=== PATIENT | male | born 1980 | race Caucasian/White ===

== ENCOUNTER 2024-09-21 16:19 | Observation (INO) | payer OTHER, SELFPAY ==
--- NOTE | ~2024-09-21 | CT_ITS ---
CLINICAL HISTORY: epigastric pain, hx gastric resection, ulcers CT abdomen and pelvis with contrast Comparison: None Findings: No consolidation or effusion. Distended gallbladder with innumerable folds, wall thickening and pericholecystic stranding, concerning for acute calculus cholecystitis. Bilateral nonobstructive renal calculi largest in the left midpole kidney measuring 1 cm. Left-sided hypodense renal cysts. No bowel obstruction. Evidence of prior gastric bypass. Normal appendix. No acute fracture. IMPRESSION: 1. Findings suggestive of acute calculus cholecystitis. 2. Bilateral nonobstructive renal calculi largest in the left midpole kidney measuring 1 cm. This document has been electronically signed by: Roddy Noguera MD on 09/21/2024 20:02:20
--- NOTE | ~2024-09-21 | US_ITS ---
CLINICAL HISTORY: pain; EVALUATE GB, CBD --- Additional Notes or Special Instructions: provider ok to do in AM US abdomen limited with color Doppler Comparison: CT/SR - CT ABDOMEN PELVIS W IV CON - 09/21/24 19:01 EDT Findings: Small layering gallstones suspected. Diffuse gallbladder wall thickening. Echogenic bile. Fluid in the gallbladder wall and pericholecystic fluid. Common bile duct upper limits of normal at 6 mm. Mild intrahepatic ductal dilatation. Positive sonographic Napoles's sign. Impression: 1. Cholelithiasis with evidence of cholecystitis. 2. Intrahepatic ductal dilatation. 3. Common bile duct upper limits of normal with no sonographic evidence of choledocholithiasis. This document has been electronically signed by: Alexander Hernandez MD on 09/22/2024 11:03:12
--- NOTE | ~2024-09-21 | MR_ITS ---
CLINICAL HISTORY: elevated lfts and duct dilatation --- Additional Notes or Special Instructions: sta t - rule out cbd stone Unable to run 3D Triggered seq due to pt breathing. Multiple repeats jonnathan mead MRCP without gadolinium Comparison: US - US ABDOMEN LIMITED - 09/22/24 08:[address]/SR - CT ABDOMEN PELVIS W IV CON - 09/21/24 19:01 EDT Findings: There are multiple gallstones within the gallbladder. There is severe edema of the gallbladder wall and the adjacent mesentery. There are at least 3 stones within the common bile duct. These measure up to 5 mm in size. There is mild associated common bile duct dilatation. There is no significant dilatation of the intrahepatic biliary tree. There is a small left kidney cyst. Abdominal organs are otherwise unremarkable. There is a small amount of free fluid within the right upper quadrant. Unremarkable visualized bowel. No significant abnormality of visualized bony structures. IMPRESSION: 1. Severe acute cholecystitis. 2. Choledocholithiasis. This document has been electronically signed by: Sara Heller MD on 09/22/2024 14:08:10
[2024-09-21 16:23] VITALS: BP 102/63; PULSE 87; RESP 26; TEMP 36.6; O2SAT 99; BMI 23.0
--- NOTE | 2024-09-21 16:24 | ED.GENADULT ---
HPI - General Adult General Chief complaint: Abdominal Pain Stated complaint: passed out Time Seen by Provider: 09/21/24 18:25 Source: patient Mode of arrival: wheelchair Limitations: no limitations History of Present Illness ED Provider: Dr. Lanette Lane HPI narrative: Patient comes to the emergency room complaining of severe abdominal pain. Patient states it started today. According to the patient's father, due to pain patient passed out for a few sec. Patient denies chest pain or shortness of breath, only complaining of severe abdominal pain and nausea. Patient denies diarrhea, denies fever chills, denies hematuria or dysuria. Related Data Allergies Allergy/AdvReac Type Severity Reaction Status Date / Time Penicillins [PENICILLINS] Allergy Unknown UNKNOWN Verified 09/21/24 16:25 Review of Systems Review of Systems: Constitutional : No Weight loss, No Fever, No Chills, No Night Sweats, No Fatigue, No Malaise ENT/Mouth : No Hearing loss, No Ear Pain, No Nasal Congestion, No Sinus Pain, No Hoarseness, No sore throat, No Rhinorrhea, No Swallowing Difficulty Eyes: No Eye Pain, No Swelling, No Redness, No Foreign Body, No Discharge, No Vision Changes Cardiovascular : No Chest Pain, No SOB, No Dyspnea on Exertion, No Orthopnea, No Edema, No Palpitations Respiratory : No Cough, No Sputum, No Wheezing, No Smoke Exposure, No Dyspnea Gastrointestinal : Complaining of nausea, very sharp epigastric pain, denies diarrhea Genitourinary : no irregular bleeding, No Dysuria, No Urinary Frequency, No Hematuria, No Urinary Incontinence, No Urgency, No Flank Pain, No Urinary Flow Changes, No Hesitancy Musculoskeletal : No joint pain, No Myalgias, No Joint Swelling Skin : No Skin Lesions, No rash Neuro : No Weakness, No Numbness, No Paresthesias, No Loss of Consciousness, No Dizziness, No Headache Psych : No Anxiety/Panic, No Depression, No SI/HI/AH/VH, No Social Issues, Heme/Lymph: No Bruising, No Bleeding,No Lymphadenopathy Endocrine : No Polyuria, No Polydipsia, No Temperature Intolerance PMF Past Medical History Medical History (Updated 09/21/24 @ 21:[address] MD) Peptic ulcer disease Surgical History (Updated 09/21/24 @ 20:[address] MD) History of partial gastrectomy Social History Social History Advance Directives: No Advance Directives Information Provided: Yes Do you have a plan to hurt others: No Plan Physical Exam ED Vital Signs: Vital Signs - 24 hr 09/21/24 16:23 09/21/24 18:43 09/21/24 19:27 Temperature 98 F 98 F 97.6 F Pulse Rate 87 80 75 Respiratory Rate 26 H 22 H 20 Blood Pressure 102/63 132/76 123/72 Pulse Oximetry 99 99 99 Oxygen Delivery Method Room Air Room Air Room Air 09/21/24 20:50 Temperature Pulse Rate 57 Respiratory Rate 16 Blood Pressure 115/62 Pulse Oximetry 96 Oxygen Delivery Method Room Air BMI result Body Mass Index 23.0 Const Other: Appearance: Alert. Oriented X3. Looks uncomfortable Eyes: Pupils equal, round and reactive to light. ENT: Pharynx normal. Neck: Normal inspection. Neck supple. No lymph nodes noted. No crepitus CVS: Normal heart rate and rhythm. Pulses normal. Normal S1 and S2 Respiratory: No respiratory distress. Breath sounds normal. No Wheezing. No rales Abdomen: Distended, pain to palpation in epigastric and right upper quadrant, positive Napoles sign Skin: Skin warm and mildly diaphoretic. Normal skin color. Normal skin turgor. Extremities: No lower extremity edema. No Lacerations. No Rash Neuro: Oriented X 3. No motor deficit. No sensory deficit. Moving all extremities. No slurred speech. CN 2 through 12 grossly intact Psych: calm, cooperative, normal affect Course Course Course Narrative: This is an RME performed by Michael Leach CNP: Additional HPI, ROS, PE not included below will be deferred to primary provider. Patient is a 44-year-old male who presents to the emergency department for evaluation. His father presented to triage requesting assistance to get him out of the vehicle. Evidently he may have passed out in the back of the vehicle. He was found side-lying across the backseat of the vehicle, initially not responsive to his name few sec began spotting. Was able to extricate himself from the vehicle. Endorsing severe diffuse abdominal pain, nausea, self-induced vomiting, subjective dehydration. Reports a history of prior abdominal surgery with large portion of my stomach and small intestine removed due to ulcers? a few years prior. He he is very anxious, it is difficult to get clear history from him, he appears significantly uncomfortable. Plan: Serum labs, EKG, urinalysis Medications Administered Discontinued Medications Generic Name Dose Route Start Last Admin Trade Name Adama PRN Reason Stop Dose Admin Hydromorphone HCl 1 mg 09/21/24 20:26 09/21/24 20:32 Hydromorphone Hcl 1 Mg/Ml Syringe IVPUSH 09/21/24 20:27 1 mg ONCE ONE Administration Protocol Sodium Chloride 1,000 mls @ 999 mls/hr 09/21/24 18:28 09/21/24 20:08 Ns IVCONT 09/21/24 19:28 Infused .Q1H1M ONE Infusion Iohexol 100 ml 09/21/24 19:33 09/21/24 19:33 Iohexol 350 Mg/Ml 100 Ml Infus..Btl IV 09/21/24 19:34 85 ml ONCE ONE Administration Morphine Sulfate 2 mg 09/21/24 18:28 09/21/24 18:39 Morphine Sulfate 2 Mg/Ml Cartridge IVPUSH 09/21/24 18:29 2 mg ONCE ONE Administration Protocol Ondansetron HCl 4 mg 09/21/24 18:28 09/21/24 18:39 Ondansetron Hcl 4 Mg/2 Ml Vial IVPUSH 09/21/24 18:29 4 mg ONCE ONE Administration Medical Decision Making Medical Decision Making [facility] Narrative: Patient was given morphine, Zofran and IV fluids CT scan shows a calculus cholecystitis. Patient states that he is still in significant amount of pain, patient given Dilaudid. Patient was also given IV Zosyn I discussed the patient with Dr. Duke from General surgery, patient being admitted I discussed the above-mentioned with the patient, agrees with plan. Differential Diagnosis Differential Diagnoses: The differential diagnosis associated with the presentation includes (Peptic perforation, small-bowel obstruction, pancreatitis, cholecystitis) Admission/Observation Consideration of admission/observation: Escalation of care including admission/observation considered Consult Healthcare Provider Management of the patient was discussed with: Public Housing Manager Lab Data [facility] Lab Attestation statement: I reviewed the patient's lab results. 09/21/24 17:13 09/21/24 17:13 Labs: Lab Results 09/21/24 Range/Units 17:13 WBC 10.3 (4.8-10.8) X10*3/uL RBC 4.70 (4.60-5.80) X10*6/uL Hgb 13.3 L (14.0-18.0) g/dl Hct 37.6 L (42.0-52.0) % MCV 80.0 (80.0-98.0) fL MCH 28.3 (27.0-33.0) pg MCHC 35.4 (31.0-36.0) g/dl RDW 12.5 (11.0-16.0) % Plt Count 188 (160-400) X10*3/uL MPV 9.9 (9.4-12.4) fL Immature Gran % (Auto) 0.4 (0.0-0.4) % Neut % (Auto) 85.2 H (45-73) % Lymph % (Auto) 6.8 L (20-40) % [place] % (Auto) 7.3 (2-11) % Eos % (Auto) 0.0 (0-4) % Baso % (Auto) 0.3 (0-2) % Lymph # (Auto) 0.7 L (1.2-4.9) X10*3/uL [place] # (Auto) 0.8 (0.1-1.2) X10*3/uL Eos # (Auto) 0.0 (0.0-0.4) X10*3/uL Baso # (Auto) 0.0 (0.0-0.2) X10*3/uL Abs Immat Gran (auto) 0.04 H (0.00-0.03) X10*3/uL Absolute Neuts (auto) 8.8 H (2.0-8.3) x10*3/uL Absolute Nucleated RBC 0.000 (0.0-0.012) X10*3/uL Nucleated RBC % (auto) 0.0 (0.0-0.2) /100WBC Sodium 138 (135-145) mmol/L Potassium 4.4 (3.3-5.1) mmol/L Chloride 101 (96-108) mmol/L Carbon Dioxide 27 (22-29) mmol/L Anion Gap 14 (12-20) BUN 11 (9-16) mg/dL Creatinine 0.86 (0.5-1.4) mg/dL Estim Creat Clear Calc 113.6 Estimated GFR > 60 Random Glucose 140 H (60-115) mg/dL Calcium 9.8 (8.4-10.2) mg/dL Magnesium 1.9 (1.6-2.6) mg/dL Total Bilirubin 0.8 (0.0-1.0) mg/dL AST 46 H (5-37) U/L ALT 97 H (0-40) U/L Alkaline Phosphatase 100 (39-117) U/L Troponin I High Sens < 2.7 (<3.5-35.0) ng/L C-Reactive Protein 4.28 H (< or = 0.50) mg/dL Total Protein 7.7 (6.5-8.0) g/dL Albumin 4.3 (3.5-5.0) g/dL Lipase 18 (8-78) U/L Influenza Type A (PCR) NEGATIVE (Negative) Influenza Type B (PCR) NEGATIVE (Negative) RSV RNA Qual (PCR) NEGATIVE (Negative) SARS-CoV-2 RNA (RT-PCR) NEGATIVE (Negative) Independent Interpretation I performed an independent interpretation of an: EKG (My interpretation of EKG: Sinus bradycardia, heart rate 59, no ST segment depression or elevation, no T-wave inversion, QTC 392) Critical Care Time Critical Care Time Critical Care Time: Yes Total Critical Care Time: 60 Attestation: I have personally provided critical care time. Time includes review of lab data, radiology results, discussion with consultants, and monitoring for potential decompensation. Intervention performed as documented. Discharge Plan Discharge Clinical Impression: Acute acalculous cholecystitis Patient Disposition: Admitted As Inpatient Print Language: Estonian
--- NOTE | 2024-09-21 16:27 | ECG_ITS ---
Test Reason : SYNCOPE Blood Pressure : */* mmHG Vent. Rate : 59 BPM Atrial Rate : 59 BPM P-R Int : 176 ms QRS Dur : 84 ms QT Int : 396 ms P-R-T Axes : 52 81 69 degrees QTcB Int : 392 ms Sinus bradycardia Otherwise normal ECG No previous ECGs available Referred By: Rea Leach Electronically Signed By: Gary Cooney
[2024-09-21 17:19] LABS: MANUAL DIFF FLAG NO
[2024-09-21 17:22] LABS: Basophils Percent Auto 0.3 % (0-2); Hematocrit 37.6 % (42.0-52.0); Hemoglobin 13.3 g/dl (14.0-18.0); Imm Gran Abs Auto 0.04 X10*3/uL (0.00-0.03); Imm Gran Pct Auto 0.4 % (0.0-0.4); Lymphocytes Absolute Auto 0.7 X10*3/uL (1.2-4.9); Lymphocytes Percent Auto 6.8 % (20-40); Mean Corpuscular HGB Conc 35.4 g/dl (31.0-36.0); Mean Corpuscular Hemoglobin 28.3 pg (27.0-33.0); Mean Platelet Volume 9.9 fL (9.4-12.4); Monocytes Absolute Auto 0.8 X10*3/uL (0.1-1.2); Monocytes Percent Auto 7.3 % (2-11); Neutrophils Absolute Auto 8.8 x10*3/uL (2.0-8.3); Neutrophils Percent Auto 85.2 % (45-73); Platelet Count 188 X10*3/uL (160-400); Red Cell Distribution Width 12.5 % (11.0-16.0); White Blood Count 10.3 X10*3/uL (4.8-10.8)
[2024-09-21 17:40] LABS: Albumin Level 4.3 g/dL (3.5-5.0); Alkaline Phosphatase 100 U/L (39-117); Anion Gap 14 (12-20); Aspartate Amino Transferase 46 U/L (5-37); Bilirubin Total 0.8 mg/dL (0.0-1.0); Blood Urea Nitrogen 11 mg/dL (9-16); C Reactive Protein 4.28 mg/dL (< or = 0.50); Calcium 9.8 mg/dL (8.4-10.2); Carbon Dioxide 27 mmol/L (22-29); Chloride 101 mmol/L (96-108); Creatinine Clr Calc Pharmacy 113.6; Estimated Glomerular Filt Rate > 60; Glucose Random 140 mg/dL (60-115); Lipase 18 U/L (8-78); Magnesium 1.9 mg/dL (1.6-2.6); Potassium 4.4 mmol/L (3.3-5.1); Sodium 138 mmol/L (135-145); Total Protein 7.7 g/dL (6.5-8.0)
[2024-09-21 17:47] LABS: Troponin-I High Sensitivity < 2.7 ng/L (<3.5-35.0)
[2024-09-21 17:53] LABS: Alanine Aminotransferase 97 U/L (0-40)
[2024-09-21 18:17] LABS: Influenza A PCR NEGATIVE (Negative); Influenza B PCR NEGATIVE (Negative); Resp Syncy Virus RNA Qual PCR NEGATIVE (Negative); SARS COV2 PCR INHOUSE NEGATIVE (Negative)
[2024-09-21] MEDS: ondansetron HCL 4 MG/2 ML VIAL IVPUSH (18:39)
[2024-09-21] MEDS: Morphine Sulfate 2 MG/ML CARTRIDGE IVPUSH ×2 (18:39→22:42)
[2024-09-21] MEDS: 0.9 % Sodium Chloride 1,000 ML 999 ML IVCONT (18:40)
[2024-09-21 18:43] VITALS: BP 132/76; PULSE 80; RESP 22; TEMP 36.6; O2SAT 99
--- NOTE | 2024-09-21 18:44 | PC.NURSE ---
Pt pale/diaphoretic; in obvious discomfort; medicated per orders
[2024-09-21 19:27] VITALS: BP 123/72; PULSE 75; RESP 20; TEMP 36.4; O2SAT 99
[2024-09-21] MEDS: iohexoL 350 MG/ML 100 ML INFUS..BTL IV (19:33)
[2024-09-21] MEDS: HYDROmorphone HCl 1 MG/ML SYRINGE IVPUSH (20:32)
[2024-09-21 20:50] VITALS: BP 115/62; PULSE 57; RESP 16; O2SAT 96
--- NOTE | 2024-09-21 21:36 | PHA.MEDREC ---
Addendum entered by Jericho Fontenot RPh 09/21/24 21:40: Reviewed by [facility]. Original Note: Pharmacy Consult ? Medication Reconciliation Pharmacy has completed the medication reconciliation. Spoke with patient and he confirmed he is only taking the Suboxone 8-2mg films and confirmed he dissolves 1 film under the tongue twice a day and states he took one this morning.
[2024-09-21 21:41] LABS: Lactic Acid 1.6 mmol/L (0.5-2.0)
[2024-09-21 21:59] VITALS: BP 116/68; PULSE 73; RESP 16; TEMP 37.8; O2SAT 98
[2024-09-21] MEDS: levoFLOXacin/D5W 500 MG/100 ML PIGGYBACK 100 MG IV (22:10)
[2024-09-21 22:26] LABS: Appearance Urine Clear; Color Urine Yellow; Glucose Urine UA Negative (Negative); Leukocyte Esterase Urine Negative (Negative); Nitrite Urine Negative (Negative); Specific Gravity - Urine >= 1.030 (1.005-1.025); UMIC TRIGGER UACC YES; Urine Blood Large (3+) (Negative); Urine Ketones 40 mg/dL (Negative); Urine Protein Trace mg/dL (Neg-Trace)
[2024-09-21 22:31] LABS: Bacteria Urine None Seen (None Seen); Hyaline Casts Urine 0-2 /LPF (0-2); RBC Urine >20 /HPF (0-2); Squamous Epithelial Cell Urine 0-2 /HPF (0-2); WBC Urine 0-5 /HPF (0-5)
[2024-09-21] MEDS: metroNIDAZOLE/NS 500 MG/100 ML PIGGYBACK 100 MG IV (23:12)
[2024-09-21] MEDS: Lactated Ringers 1,000 ML 100 ML IVCONT (23:15)
[2024-09-22] VITALS (7 sets, daily range): BP systolic 97–118; BP diastolic 55–66; PULSE 68–118; RESP 1–20; TEMP 36.8–39.2; O2SAT 95–99
[2024-09-22] MEDS: Melatonin 3 MG TABLET 6 MG PO (02:28)
[2024-09-22] MEDS: Acetaminophen 325 MG TABLET 650 MG PO ×2 (03:14→16:00)
[2024-09-22] MEDS: Morphine Sulfate 2 MG/ML CARTRIDGE IVPUSH ×2 (04:46→17:09)
[2024-09-22 06:04] LABS: MANUAL DIFF FLAG NO
[2024-09-22 06:15] LABS: Basophils Percent Auto 0.2 % (0-2); Hematocrit 32.2 % (42.0-52.0); Hemoglobin 11.3 g/dl (14.0-18.0); Imm Gran Abs Auto 0.07 X10*3/uL (0.00-0.03); Imm Gran Pct Auto 0.6 % (0.0-0.4); Lymphocytes Absolute Auto 0.4 X10*3/uL (1.2-4.9); Lymphocytes Percent Auto 3.9 % (20-40); Mean Corpuscular HGB Conc 35.1 g/dl (31.0-36.0); Mean Corpuscular Hemoglobin 28.1 pg (27.0-33.0); Mean Corpuscular Volume 80.1 fL (80.0-98.0); Mean Platelet Volume 10.4 fL (9.4-12.4); Monocytes Absolute Auto 0.9 X10*3/uL (0.1-1.2); Monocytes Percent Auto 8.4 % (2-11); Neutrophils Absolute Auto 9.4 x10*3/uL (2.0-8.3); Neutrophils Percent Auto 86.9 % (45-73); Platelet Count 146 X10*3/uL (160-400); Red Blood Count 4.02 X10*6/uL (4.60-5.80); Red Cell Distribution Width 12.8 % (11.0-16.0); White Blood Count 10.8 X10*3/uL (4.8-10.8)
[2024-09-22] MEDS: Pantoprazole Sodium 40 MG/10 ML VIAL IVPUSH (06:27)
[2024-09-22 06:47] LABS: Alanine Aminotransferase 61 U/L (0-40); Albumin Level 3.3 g/dL (3.5-5.0); Alkaline Phosphatase 85 U/L (39-117); Anion Gap 13 (12-20); Aspartate Amino Transferase 35 U/L (5-37); Bilirubin Total 1.4 mg/dL (0.0-1.0); Blood Urea Nitrogen 11 mg/dL (9-16); Calcium 8.4 mg/dL (8.4-10.2); Carbon Dioxide 25 mmol/L (22-29); Chloride 103 mmol/L (96-108); Creatinine Clr Calc Pharmacy 109.8; Estimated Glomerular Filt Rate > 60; Glucose Random 119 mg/dL (60-115); Sodium 137 mmol/L (135-145); Total Protein 5.9 g/dL (6.5-8.0)
[2024-09-22] MEDS: Lactated Ringers 1,000 ML 100 ML IVCONT (08:36)
--- NOTE | 2024-09-22 09:15 | MHC.CM.PN ---
PHILLIP 09/22/24 DX Abdominal Pain Pt lives w Father+son He is independent with all functional mobility. He is prescribed Suboxone. He does not know the name of his PCP. [facility] brochure provided. DP home self care. He will arrange for transportation home.
[2024-09-22] MEDS: cefTRIAXone sodium 1 GM VIAL IVPUSH (14:34)
[2024-09-22] MEDS: metroNIDAZOLE/NS 500 MG/100 ML PIGGYBACK 100 MG IV (14:44)
--- NOTE | 2024-09-22 15:56 | PM.HPGS ---
History of Present Illness History of Present Illness Date of Service: 09/22/24 Chief complaint: abdominal pain Narrative: The pt is a 44 year old male who has a history of gastric ulcers in anna past and in 2013 at [facility] [place] underwent partial gastrectomy with billroth II reconstruction. Pt has been well since then - not for obesity. now comes in with abdominal pain on and off for the last 3-4 days worsening yesterday and came into the ER and wbc normal, vitals ok but with severe epigastric pain. CT scan abdo and pelvis showing cholecystitis and ruq ultrasound showing dilated CBD and intrahepatic duct. MRCP then done shows at least 3, 0.5mm stones in her CBD and stones in his GB. tbili elevated a bit. Pt feeling better with npo and ivf and iv Levaquin to Ceftriaxone and Flagyl. Blood cultures showing GM negative rods growing. Pt feeling little worse now. GI here semiconductor lab technician unable to carry out ERCP in B-II anatomy and recommending transfering out. [facility] has no GI to do ERCP. Discussed case with [facility] and is in agreement to accept transfer to surgery with GI consultation for ERCP and then lap melvin by surgical team. Pt is in agreement. Review of Systems Review of Systems: Yes all other systems are reviewed and are negative [facility] Past Medical History Medical History (Updated 09/22/24 @ 17:09 by Gracie Duke MD) Peptic ulcer disease Surgical History Surgical History (Updated 09/21/24 @ 20:[address] MD) History of partial gastrectomy Social History Social History Patient Tobacco Use Status: Never used Tobacco service: No Meds Allergies Allergy/AdvReac Type Severity Reaction Status Date / Time Penicillins [PENICILLINS] Allergy Unknown UNKNOWN Verified 09/21/24 16:25 Active Medications: Current Medications Acetaminophen (Acetaminophen 325 Mg Tablet) 650 mg PO Q6H PRN PRN Reason: Pain, Mild 1-3,fever,headache Last Admin: 09/22/24 03:14 Dose: 650 mg Calcium Carbonate (Calcium Carbonate 750 Mg Tab.Chew) 750 mg PO Q4H PRN PRN Reason: Heartburn Ceftriaxone Sodium (Ceftriaxone Sodium 1 Gm Vial) 1 gm IVPUSH Q24H SURINDER Last Admin: 09/22/24 14:34 Dose: 1 gm Lactated Ringer's (Lr) 1,000 mls @ 100 mls/hr IVCONT .Q10H [facility] Last Admin: 09/22/24 08:36 Dose: 100 mls/hr Metronidazole (Flagyl) 500 mg in 100 mls @ 100 mls/hr IV Q6H [facility] Last Infusion: 09/22/24 15:44 Dose: Infused Magnesium Hydroxide (Milk Of Magnesia 30 Ml Oral.Susp) 30 ml PO DAILY PRN PRN Reason: Constipation Melatonin (Melatonin 3 Mg Tablet) 6 mg PO BEDTIME PRN PRN Reason: Insomnia Last Admin: 09/22/24 02:28 Dose: 6 mg Morphine Sulfate (Morphine Sulfate 2 Mg/Ml Cartridge) 2 mg IVPUSH RQ4H PRN; Protocol PRN Reason: Pain, Severe (Pain Scale 7-10) Last Admin: 09/22/24 04:46 Dose: 2 mg Ondansetron HCl (Ondansetron Hcl 4 Mg/2 Ml Vial) 4 mg IVPUSH Q8H PRN PRN Reason: Nausea and Vomiting Pantoprazole Sodium (Pantoprazole Sodium 40 Mg/10 Ml Vial) 40 mg IVPUSH DAILY@0630 [facility] Last Admin: 09/22/24 06:27 Dose: 40 mg Sodium Chloride (0.9 % Sodium Chloride Flush 3 Ml Syringe) 3 ml IVFLUSH QSHIFT [facility] Last Admin: 09/22/24 15:09 Dose: Not Given Home Medications ?Medication ?Instructions ?Recorded ?Confirmed ?Last Taken ?Type buprenorphine 8 mg-naloxone 2 mg 1 film sublingual BID 09/21/24 09/21/24 09/21/24 History sublingual film (Suboxone) Physical Exam Vital Signs: Vital Signs: Last Vital Signs Temp 98.6 F 09/22/24 15:42 Pulse 68 09/22/24 15:42 Resp 1 L 09/22/24 15:42 BP 112/65 09/22/24 15:42 Pulse Ox 99 09/22/24 15:42 O2 Del Method Room Air 09/22/24 15:42 BMI result Body Mass Index 23.0 Const: General: cooperative, healthy appearing and comfortable HEENT: Other: nonicteric Resp: Effort & Inspection: normal respiratory effort Auscultation: clear to auscultation bilaterally Cardio: Rate: regular rate Rhythm: regular rhythm GI: Other: thin abdo, soft nondistended tender ruq no peritonitis mild guarding Psych: Appearance: grossly normal Mental Status: mental status grossly normal Speech and movement: Normal speech and movement present Affect: normal affect Attitude: cooperative Thought process: Normal thought process present Thought content: Normal thought content present Results Results Labs: Short CBC 09/21/24 09/22/24 Range/Units 17:13 05:45 WBC 10.3 10.8 (4.8-10.8) X10*3/uL Hgb 13.3 L 11.3 L (14.0-18.0) g/dl Hct 37.6 L 32.2 L (42.0-52.0) % Plt Count 188 146 L (160-400) X10*3/uL BMP 09/21/24 09/22/24 17:13 05:45 Sodium 138 137 Potassium 4.4 4.0 Chloride 101 103 Carbon Dioxide 27 25 BUN 11 11 Creatinine 0.86 0.89 Calcium 9.8 8.4 D Liver Function 09/21/24 09/22/24 Range/Units 17:13 05:45 Total Bilirubin 0.8 1.4 H (0.0-1.0) mg/dL AST 46 H 35 (5-37) U/L ALT 97 H 61 H (0-40) U/L Alkaline Phosphatase 100 85 (39-117) U/L Albumin 4.3 3.3 L (3.5-5.0) g/dL Urine 09/21/24 Range/Units 22:18 Urine Color Yellow Urine Appearance Clear Urine pH 8.0 (5.0-9.0) Ur Specific [place] >= 1.030 H (1.005-1.025) Urine Protein Trace (Neg-Trace) mg/dL Urine Glucose (UA) Negative (Negative) mg/dL Additional studies: ent: александрRojas MR#: [id number] : 1980 Acct:[id number] Age/Sex: 44 / M ADM Date: 09/21/24 Loc: .S3 357-[address]: Gracie Duke MD Ordering Physician: Gracie Duke MD Date of Service: 09/22/24 Procedure(s): [facility] Accession Number(s): [id number] cc: Physician,Unknown ; Gracie Duke MD~ CLINICAL HISTORY: elevated lfts and duct dilatation --- Additional Notes or Special Instructions: stat - rule out cbd stone Unable to run 3D Triggered seq due to pt breathing. Multiple repeats attempted. MRCP without gadolinium Comparison: US - US ABDOMEN LIMITED - 09/22/24 08:[address]/SR - CT ABDOMEN PELVIS W IV CON - 09/21/24 19:01 EDT Findings: There are multiple gallstones within the gallbladder. There is severe edema of the gallbladder wall and the adjacent mesentery. There are at least 3 stones within the common bile duct. These measure up to 5 mm in size. There is mild associated common bile duct dilatation. There is no significant dilatation of the intrahepatic biliary tree. There is a small left kidney cyst. Abdominal organs are otherwise unremarkable. There is a small amount of free fluid within the right upper quadrant. Unremarkable visualized bowel. No significant abnormality of visualized bony structures. IMPRESSION: 1. Severe acute cholecystitis. 2. Choledocholithiasis. This document has been electronically signed by: Sara Heller MD on 09/22/2024 14:08:10 Dictated By: Sara Heller MD Signed By: <Electronically signed by Sara Heller MD in OV> 09/22/24 1409 DD/ 1408 TD/TT: 09/22/24 1408 Cma: Assessment and Plan (1) Bacteremia due to Gram-negative bacteria: Status: Acute (2) Choledocholithiasis: Status: Acute (3) Cholelithiasis: Status: Acute (4) Cholecystitis: Status: Acute Plan Cholecystitis and cholelithiasis and choledocholithiasis with gram negative bacteremia - stable but unable to do ERCP here and MRCP shows at least 3 stones in CBD - transfer to surgical service at [place] with GI consult Quality Stroke Does the patient have a stroke diagnosis?: No VTE Prior VTE?: No VTE Risk Level:: Surgical - low VTE Device Contraindication: Treatment Not Indicated VTE Drug Contraindication: Treatment Not Indicated Procedures Date of Service Date of Service: 09/22/24
--- NOTE | 2024-09-22 16:59 | P.DS_ITS ---
DS: Providers Provider Date of Service: 09/22/24 Date of admission: 09/21/24 22:05 Date of discharge: 09/22/24 Primary care physician: Unknown Physician Admitting clinician: Gracie Duke Attending physician on discharge: Gracie Duke DS: Transfer Hospital Acceptance Reason for Transfer: unable to do procedures required here in [facility] Name of Facility: [facility] Accepting Provider: Dr Nicole Porter DS: Diagnosis Discharge Diagnosis (1) Cholecystitis: Status: Acute (2) Cholelithiasis: Status: Acute (3) Choledocholithiasis: Status: Acute (4) Bacteremia due to Gram-negative bacteria: Status: Acute DS: Summary Hospital Course Hospital Course: The pt is a 44 year old male who has a history of gastric ulcers in anna past and in 2013 at [facility] [place] underwent partial gastrectomy with billroth II reconstruction. Pt has been well since then - not for obesity. now comes in with abdominal pain on and off for the last 3-4 days worsening yesterday and came into the ER and wbc normal, vitals ok but with severe ep igastric pain. CT scan abdo and pelvis showing cholecystitis and ruq ultrasound showing dilated CBD and intrahepatic duct. MRCP then done shows at least 3, 0.5mm stones in her CBD and stones in his GB. tbili elevated a bit. Pt feeling better with npo and ivf and iv Levaquin to Ceftriaxone and Flagyl. Blood cultures showing GM negative rods growing. Pt feeling little worse now. 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 [facility] has no GI to do ERCP. Discussed case with [facility] and is in agreement to accept transfer to surgery with GI consultation for ERCP and then lap melvin by surgical team. Pt is in agreement. Status at Discharge Cognitive/behavioral status at discharge: good Functional status at discharge: independent ambulation Time Attestation Total time managing care of this patient today: 90 mintues. Discharge Coordination Time (in mins): 45 min - discuss with [place] transfer team and [facility] team Quality: Safe Use of Opioids Does Pt have an Active Cancer Diagnosis on the Problem List?: No Quality: Stroke Does the patient have a stroke diagnosis?: No Reason for No Anti-thrombotic at DC: Not indicated Reason for No Anticoagulant at DC: Not indicated Reason Not Initiating IV-Tpa: Not indicated Reason for No Anti-thrombotic by Day Two: Not indicated Reason for No Statin at DC: Not indicated Physical Exam Vital Signs: Vital Signs: Last Vital Signs Temp 98.6 F 09/22/24 15:42 Pulse 68 09/22/24 15:42 Resp 1 L 09/22/24 15:42 BP 112/65 09/22/24 15:42 Pulse Ox 99 09/22/24 15:42 O2 Del Method Room Air 09/22/24 15:42 BMI result Body Mass Index 23.0 Const: General: cooperative, healthy appearing and comfortable Nutritional Appearance: thin Orientation/consciousness: patient oriented x3 HEENT: Other: nonicteric GI: Other: abdomen soft, tender epigastric area and ruq mild guarding active bowel sounds Skin: Other: not jaundiced Neuro: General: patient oriented x3 DS: Data Data Completed and Pending Labs on day of discharge: Laboratory Results - last 24 hr 09/21/24 09/21/24 09/21/24 17:13 21:17 22:18 WBC 10.3 RBC 4.70 Hgb 13.3 L Hct 37.6 L MCV 80.0 MCH 28.3 MCHC 35.4 RDW 12.5 Plt Count 188 MPV 9.9 Immature Gran % (Auto) 0.4 Neut % (Auto) 85.2 H Lymph % (Auto) 6.8 L [place] % (Auto) 7.3 Eos % (Auto) 0.0 Baso % (Auto) 0.3 Lymph # (Auto) 0.7 L [place] # (Auto) 0.8 Eos # (Auto) 0.0 Baso # (Auto) 0.0 Abs Immat Gran (auto) 0.04 H Absolute Neuts (auto) 8.8 H Absolute Nucleated RBC 0.000 Nucleated RBC % (auto) 0.0 Sodium 138 Potassium 4.4 Chloride 101 Carbon Dioxide 27 Anion Gap 14 BUN 11 Creatinine 0.86 Estim Creat Clear Calc 113.6 Estimated GFR > 60 Random Glucose 140 H Lactic Acid 1.6 Calcium 9.8 Magnesium 1.9 Total Bilirubin 0.8 AST 46 H ALT 97 H Alkaline Phosphatase 100 Troponin I High Sens < 2.7 C-Reactive Protein 4.28 H Total Protein 7.7 Albumin 4.3 Lipase 18 Urine Color Yellow Urine Appearance Clear Urine pH 8.0 Ur Specific [place] >= 1.030 H Urine Protein Trace Urine Glucose (UA) Negative Urine Ketones 40 Urine Blood Large (3+) H Urine Nitrite Negative Ur Leukocyte Esterase Negative Urine RBC >20 H Urine WBC 0-5 Ur Squamous Epith Cells 0-2 Urine Bacteria None Seen Hyaline Casts 0-2 Influenza Type A (PCR) NEGATIVE Influenza Type B (PCR) NEGATIVE RSV RNA Qual (PCR) NEGATIVE SARS-CoV-2 RNA (RT-PCR) NEGATIVE 09/22/24 05:45 WBC 10.8 RBC 4.02 L Hgb 11.3 L Hct 32.2 L MCV 80.1 MCH 28.1 MCHC 35.1 RDW 12.8 Plt Count 146 L MPV 10.4 Immature Gran % (Auto) 0.6 H Neut % (Auto) 86.9 H Lymph % (Auto) 3.9 L [place] % (Auto) 8.4 Eos % (Auto) 0.0 Baso % (Auto) 0.2 Lymph # (Auto) 0.4 L [place] # (Auto) 0.9 Eos # (Auto) 0.0 Baso # (Auto) 0.0 Abs Immat Gran (auto) 0.07 H Absolute Neuts (auto) 9.4 H Absolute Nucleated RBC 0.000 Nucleated RBC % (auto) 0.0 Sodium 137 Potassium 4.0 Chloride 103 Carbon Dioxide 25 Anion Gap 13 BUN 11 Creatinine 0.89 Estim Creat Clear Calc 109.8 Estimated GFR > 60 Random Glucose 119 H Lactic Acid Calcium 8.4 D Magnesium Total Bilirubin 1.4 H AST 35 ALT 61 H Alkaline Phosphatase 85 Troponin I High Sens C-Reactive Protein Total Protein 5.9 L Albumin 3.3 L Lipase Urine Color Urine Appearance Urine pH Ur Specific [place] Urine Protein Urine Glucose (UA) Urine Ketones Urine Blood Urine Nitrite Ur Leukocyte Esterase Urine RBC Urine WBC Ur Squamous Epith Cells Urine Bacteria Hyaline Casts Influenza Type A (PCR) Influenza Type B (PCR) RSV RNA Qual (PCR) SARS-CoV-2 RNA (RT-PCR) Preliminary micro results at discharge 09/21/24 21:23 Blood Culture - Preliminary Blood - Venous Prelim: GNR Gram Stain only Discharge Plan Discharge Anticipated Discharge Date/Time: 09/22/24 18:00 Patient Disposition: Xfer Acute Care Hospital Discharge Diagnosis: cholelithiasis, choledocholithiasis, cholecystitis Referrals: Physician,Unknown J [Primary Care Provider] - 1 Week Discharge Medications: Held buprenorphine-naloxone [Suboxone] 8-2 mg film 1 film sublingual BID Hold Instructions: Resume on 10/12/24. Discharge Orders: Discharge Order (Routine); Ordered 09/22/24 Ordered By: Gracie Duke Activity on Discharge: As tolerated Stand Alone Forms: Patient Portal Discharge page Print Language: Upper Sorbian Care Plan Goals: see below Health Concerns: pt with acute choledocholithiasis and cholecystitis - needds ERCP in pt with previous partial gastrectomy and B-II reconstruction not able to be done here Plan of Treatment: Being treated with npo, ivf hydration, iv Ceftriaxone and Flagyl and suboxone on hold while receiving iv narcotics prn. Assessment: Transfer to tertiary care outside [facility] for inpatient admit and surgical procedures. Dr Nicole Porter accepting transfer.
--- NOTE | 2024-09-22 17:49 | PM.DS ---
DS: Providers Provider Date of Service: 09/22/24 Date of admission: 09/21/24 22:05 Date of discharge: 09/22/24 Primary care physician: Unknown Physician DS: Diagnosis Discharge Diagnosis (1) Cholecystitis: Status: Acute (2) Cholelithiasis: Status: Acute (3) Choledocholithiasis: Status: Acute (4) Bacteremia due to Gram-negative bacteria: Status: Acute DS: Summary Hospital Course Hospital Course: The pt is a 44 year old male who has a history of gastric ulcers in anna past and in 2013 at [facility] underwent partial gastrectomy with billroth II reconstruction. Pt has been well since then - not for obesity. now comes in with abdominal pain on and off for the last 3-4 days worsening yesterday and came into the ER and wbc normal, vitals ok but with severe epigastric pain. CT scan abdo and pelvis showing cholecystitis and ruq ultrasound showing dilated CBD and intrahepatic duct. MRCP then done shows at least 3, 0.5mm stones in her CBD and stones in his GB. tbili elevated a bit. Pt feeling better with npo and ivf and iv Levaquin to Ceftriaxone and Flagyl. Blood cultures showing GM negative rods growing. Pt feeling little worse now. 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 [facility] has no GI to do ERCP. Discussed case with [facility] and is in agreement to accept transfer to surgery with GI consultation for ERCP and then lap melvin by surgical team. Pt is in agreement. Time Attestation Discharge Coordination Time (in mins): 90 min Quality: Safe Use of Opioids Does Pt have an Active Cancer Diagnosis on the Problem List?: No Quality: Stroke Does the patient have a stroke diagnosis?: No Physical Exam Vital Signs: Vital Signs: Last Vital Signs Temp 98.6 F 09/22/24 15:42 Pulse 68 09/22/24 15:42 Resp 1 L 09/22/24 15:42 BP 112/65 09/22/24 15:42 Pulse Ox 99 09/22/24 15:42 O2 Del Method Room Air 09/22/24 15:42 BMI result Body Mass Index 23.0 DS: Data Data Completed and Pending Labs on day of discharge: Laboratory Results - last 24 hr 09/21/24 09/21/24 09/21/24 17:13 21:17 22:18 WBC RBC Hgb Hct MCV MCH MCHC RDW Plt Count MPV Immature Gran % (Auto) Neut % (Auto) Lymph % (Auto) [place] % (Auto) Eos % (Auto) Baso % (Auto) Lymph # (Auto) [place] # (Auto) Eos # (Auto) Baso # (Auto) Abs Immat Gran (auto) Absolute Neuts (auto) Absolute Nucleated RBC Nucleated RBC % (auto) Sodium Potassium Chloride Carbon Dioxide Anion Gap BUN Creatinine Estim Creat Clear Calc Estimated GFR Random Glucose Lactic Acid 1.6 Calcium Total Bilirubin AST ALT 97 H Alkaline Phosphatase Total Protein Albumin Urine Color Yellow Urine Appearance Clear Urine pH 8.0 Ur Specific [place] >= 1.030 H Urine Protein Trace Urine Glucose (UA) Negative Urine Ketones 40 Urine Blood Large (3+) H Urine Nitrite Negative Ur Leukocyte Esterase Negative Urine RBC >20 H Urine WBC 0-5 Ur Squamous Epith Cells 0-2 Urine Bacteria None Seen Hyaline Casts 0-2 Influenza Type A (PCR) NEGATIVE Influenza Type B (PCR) NEGATIVE RSV RNA Qual (PCR) NEGATIVE SARS-CoV-2 RNA (RT-PCR) NEGATIVE 09/22/24 05:45 WBC 10.8 RBC 4.02 L Hgb 11.3 L Hct 32.2 L MCV 80.1 MCH 28.1 MCHC 35.1 RDW 12.8 Plt Count 146 L MPV 10.4 Immature Gran % (Auto) 0.6 H Neut % (Auto) 86.9 H Lymph % (Auto) 3.9 L [place] % (Auto) 8.4 Eos % (Auto) 0.0 Baso % (Auto) 0.2 Lymph # (Auto) 0.4 L [place] # (Auto) 0.9 Eos # (Auto) 0.0 Baso # (Auto) 0.0 Abs Immat Gran (auto) 0.07 H Absolute Neuts (auto) 9.4 H Absolute Nucleated RBC 0.000 Nucleated RBC % (auto) 0.0 Sodium 137 Potassium 4.0 Chloride 103 Carbon Dioxide 25 Anion Gap 13 BUN 11 Creatinine 0.89 Estim Creat Clear Calc 109.8 Estimated GFR > 60 Random Glucose 119 H Lactic Acid Calcium 8.4 D Total Bilirubin 1.4 H AST 35 ALT 61 H Alkaline Phosphatase 85 Total Protein 5.9 L Albumin 3.3 L Urine Color Urine Appearance Urine pH Ur Specific [place] Urine Protein Urine Glucose (UA) Urine Ketones Urine Blood Urine Nitrite Ur Leukocyte Esterase Urine RBC Urine WBC Ur Squamous Epith Cells Urine Bacteria Hyaline Casts Influenza Type A (PCR) Influenza Type B (PCR) RSV RNA Qual (PCR) SARS-CoV-2 RNA (RT-PCR) Preliminary micro results at discharge 09/21/24 21:23 Blood Culture - Preliminary Blood - Venous Prelim: GNR Gram Stain only Discharge Plan Discharge Anticipated Discharge Date/Time: 09/22/24 18:00 Patient Disposition: Xfer [facility] Discharge Diagnosis: cholelithiasis, choledocholithiasis, cholecystitis Referrals: Physician,Unknown J [Primary Care Provider] - 1 Week Discharge Medications: Held buprenorphine-naloxone [Suboxone] 8-2 mg film 1 film sublingual BID Hold Instructions: Resume on 10/12/24. Discharge Orders: Discharge Order (Routine); Ordered 09/22/24 Ordered By: Gracie Duke Activity on Discharge: As tolerated Stand Alone Forms: Patient Portal Discharge page Print Language: Japanese Care Plan Goals: see below Health Concerns: pt with acute choledocholithiasis and cholecystitis - needds ERCP in pt with previous partial gastrectomy and B-II reconstruction not able to be done here Plan of Treatment: Being treated with npo, ivf hydration, iv Ceftriaxone and Flagyl and suboxone on hold while receiving iv narcotics prn. Assessment: Transfer to tertiary care outside [facility] for inpatient admit and surgical procedures. Dr Nicole Porter accepting transfer.
== END 2024-09-22 18:23 | disposition short-term general hospital (02) ==
LOC: HO.ED 21:03 → HO.EDOVER 22:24 → HO.S3 09-22 02:11
PROVIDERS: Nurse Practitioner Family; Admitting Provider Surgery; Emergency Provider Emergency Medicine; Visit Provider Surgery
DX: K80.62 Calculus of gallbladder and bile duct with acute cholecystitis without obstruction (principal); R78.81 Bacteremia; B96.20 Unspecified Escherichia coli [E. coli] as the cause of diseases classified elsewhere; R10.13 Epigastric pain; R55 Syncope and collapse; Z03.818 Encounter for observation for suspected exposure to other biological agents ruled out
CPT/HCPCS: 0241U; 36415; 74177; 74181; 76705; 80053; 81001; 83605; 83690; 83735; 84484; 85025; 86140; 87040; 87077; 87186; 87205; 93005; 96361; 96365; 96366; 96367; 96375; 96376; 99285; J0696; J1171; J1836; J1956; J2270; J2405; J2470; J7120; Q9967

== ENCOUNTER → 2024-09-21 16:27 | Outpatient (BNV) | payer OTHER, SELFPAY | PROVIDERS: Admitting Provider Surgery; Emergency Provider Emergency Medicine; Visit Provider Internal Medicine Cardiovascular Disease | DX: R00.1 Bradycardia, unspecified (principal) | CPT/HCPCS: 93010 ==

== ENCOUNTER → 2024-09-21 18:28 | Outpatient (BNV) | payer OTHER, SELFPAY | PROVIDERS: Emergency Provider Emergency Medicine; Visit Provider Radiology Diagnostic Radiology | DX: N20.0 Calculus of kidney (principal) | CPT/HCPCS: 74177 ==

== ENCOUNTER 2024-09-21 22:05 | Outpatient (BNV) | payer OTHER, SELFPAY | END 2024-09-22 07:00 | PROVIDERS: Admitting Provider Surgery; Emergency Provider Emergency Medicine; Visit Provider Radiology Diagnostic Radiology | DX: K80.01 Calculus of gallbladder with acute cholecystitis with obstruction (principal) | CPT/HCPCS: 74181; 76705 ==

== ENCOUNTER → 2024-09-21 22:05 | Outpatient (BNV) | payer OTHER, SELFPAY | PROVIDERS: Admitting Provider Surgery; Emergency Provider Emergency Medicine; Visit Provider Surgery | DX: R78.81 Bacteremia (principal); K80.50 Calculus of bile duct without cholangitis or cholecystitis without obstruction; K80.20 Calculus of gallbladder without cholecystitis without obstruction | CPT/HCPCS: 99223; 99499 ==